=== PATIENT | female | born 1970 | race Caucasian/White ===

== ENCOUNTER 2018-09-03 23:18 | Emergency (ER) | payer BC, SELFPAY | END 2018-09-03 23:39 | disposition home or self-care (01) | LOC: BURERS 23:18 | DX: M54.12 Radiculopathy, cervical region (principal); I10 Essential (primary) hypertension; F32.9 Major depressive disorder, single episode, unspecified; Z79.899 Other long term (current) drug therapy | CPT/HCPCS: 99283 ==